=== PATIENT | male | born 1960 | race American Indian/Alaskan Native ===

== ENCOUNTER 2016-07-30 13:53 | Emergency (ER) | payer MEDICAID ==
--- NOTE | 2016-07-30 14:06 | ED PDOC ---
Allergies/Home Meds Allergies/Adverse Reactions: Allergies No Known Allergies Allergy (Verified 07/30/16 14:08) Physical Exam Vital Signs Temp Pulse Resp BP Pulse Ox 07/30/16 15:23 87 16 151/112 H 98 07/30/16 15:22 88 18 151/112 H 98 07/30/16 15:11 81 165/101 H 07/30/16 14:50 81 18 165/101 H 97 07/30/16 14:12 99.8 F H 89 17 155/99 H 97 07/30/16 14:03 99.8 F H 88 18 155/99 H 97 Medical Decision Making - RAD Interpretation Radiology Orders: 07/30/16 14:18 CHEST TWO VIEWS (PA/LAT) [RAD] Stat - Medication Orders Current Medication Orders: Discontinued Medications Amlodipine Besylate (Norvasc) 5 mg PO STAT STA Stop: 07/30/16 15:00 Last Admin: 07/30/16 15:11 Dose: 5 MG MAR Pulse and Blood Pressure Document 07/30/16 15:11 [facility] (Rec: 07/30/16 15:11 [email or web address]) Pulse Pulse Rate (60-90) 81 Blood Pressure Blood Pressure (100/60-150/90) 165/101 Azithromycin (Zithromax) 500 mg PO STAT STA PRN Reason: Protocol Stop: 07/30/16 15:01 Last Admin: 07/30/16 15:10 Dose: 500 MG Benzonatate (Tessalon Perles) 100 mg PO ONCE STA Stop: 07/30/16 15:00 Last Admin: 07/30/16 15:10 Dose: 100 MG Disposition/Present on Arrival - Disposition Diagnosis: Hypertension, Bronchitis Disposition: HOME/ ROUTINE Condition: STABLE Discharge Instructions (ExitCare): Acute Bronchitis (ED), Hypertension (ED) Additional Instructions: Take medication as directed Follow up with a Doctor/Clinic Return to ED for any new or worsening symptoms Prescriptions: amLODIPine [Norvasc] 5 mg PO DAILY #10 tab Benzonatate [Tessalon Perles] 100 mg PO TID #30 sgl Azithromycin [Zithromax] 250 mg PO DAILY #4 tab Referrals: [facility] at [facility] [place] [Outside] - Follow up with primary PCP,NO [Primary Care Provider] - Follow up with primary
[2016-07-30 14:08] VITALS: TEMP 99.8
--- NOTE | 2016-07-30 14:21 | ED PDOC ---
Arrival/HPI - General Chief Complaint: Cough, Cold, Congestion Time Seen by Provider: 07/30/16 14:05 Historian: Patient - History of Present Illness Narrative History of Present Illness (Text): 07/30/16 14:19 [id number] with no PMhx who present with 3days history of nonproductive cough, contrary to the tirage note that states green productive cough. Also reports rhinorrhea, burning throat, chills. Took Mucinex today. Denies fever, sick contact, travel, chest pain, SOB, nausea, vomiting, any other complaint. Past Medical History - Provider Review Nursing Documentation Reviewed: Yes - Infectious Disease Hx of Infectious Diseases: None - Psychiatric Hx Substance Use: No Family/Social History - Physician Review Nursing Documentation Reviewed: Yes Family/Social History: Unknown Family HX Smoking Status: Never Smoked Hx Alcohol Use: No Hx Substance Use: No Allergies/Home Meds Allergies/Adverse Reactions: Allergies No Known Allergies Allergy (Verified 07/30/16 14:08) Review of Systems - Physician Review All systems were reviewed & negative as marked: Yes - Review of Systems Constitutional: Normal Eyes: Normal ENT: Normal Respiratory: Cough. absent: SOB, Sputum, Wheezing Cardiovascular: Normal Gastrointestinal: Normal Genitourinary Male: Normal Musculoskeletal: Normal Skin: Normal Neurological: Normal Endocrine: Normal Hemo/Lymphatic: Normal Psychiatric: Normal Physical Exam Vital Signs Reviewed: Yes Vital Signs Temp Pulse Resp BP Pulse Ox 07/30/16 15:23 87 16 151/112 H 98 07/30/16 15:22 88 18 151/112 H 98 07/30/16 15:11 81 165/101 H 07/30/16 14:50 81 18 165/101 H 97 07/30/16 14:12 99.8 F H 89 17 155/99 H 97 07/30/16 14:03 99.8 F H 88 18 155/99 H 97 Temperature: Febrile Blood Pressure: Hypertensive Pulse: Regular Respiratory Rate: Normal Appearance: Positive for: Well-Appearing, Non-Toxic, Comfortable Pain Distress: None Mental Status: Positive for: Alert and Oriented X 3 - Systems Exam Head: Present: Atraumatic, Normocephalic Pupils: Present: PERRL Extroacular Muscles: Present: EOMI Conjunctiva: Present: Normal Mouth: Present: Moist Mucous Membranes Neck: Present: Normal Range of Motion Respiratory/Chest: Present: Clear to Auscultation, Good Air Exchange. No: Respiratory Distress, Accessory Muscle Use, Wheezes, Decreased Breath Sounds, Rales, Retracting, Rhonchi, Tachypneic Cardiovascular: Present: Regular Rate and Rhythm, Normal S1, S2. No: Murmurs Abdomen: Present: Normal Bowel Sounds. No: Tenderness, Distention, Peritoneal Signs Back: Present: Normal Inspection Upper Extremity: Present: Normal Inspection. No: Cyanosis, Edema Lower Extremity: Present: Normal Inspection. No: Edema Neurological: Present: GCS=15, CN II-XII Intact, Speech Normal Skin: Present: Warm, Dry, Normal Color. No: Rashes Psychiatric: Present: Alert, Oriented x 3, Normal Insight, Normal Concentration Medical Decision Making ED Course and Treatment: 07/30/16 15:01 PT in ED for stated history. He was afebrile and in no distress. He denies any PMHX, but also have not not seen a Doctor for 7years. His BP was elevated while in ED. Is suspect he have had elevated BP for a while but didn't know. He denies headache, aphasia, focal weakness, chest pain, visual changes. He was treated with Amlodipine 5mg in ED. He was strongly advised to f/u with a Doctor for further evaluation. Chest xray was Negative. He had low grade temp. Placed on Zpack and antitussive. TRT ED for any new or worsening symptoms. - RAD Interpretation Radiology Orders: 07/30/16 14:18 CHEST TWO VIEWS (PA/LAT) [RAD] Stat - Medication Orders Current Medication Orders: Discontinued Medications Amlodipine Besylate (Norvasc) 5 mg PO STAT STA Stop: 07/30/16 15:00 Last Admin: 07/30/16 15:11 Dose: 5 MG MAR Pulse and Blood Pressure Document 07/30/16 15:11 [facility] (Rec: 07/30/16 15:11 [facility]) Pulse Pulse Rate (60-90 beats/min) 81 Blood Pressure Blood Pressure (100/60-150/90 mm Hg) 165/101 Azithromycin (Zithromax) 500 mg PO STAT STA PRN Reason: Protocol Stop: 07/30/16 15:01 Last Admin: 07/30/16 15:10 Dose: 500 MG Benzonatate (Tessalon Perles) 100 mg PO ONCE STA Stop: 07/30/16 15:00 Last Admin: 07/30/16 15:10 Dose: 100 MG Disposition/Present on Arrival - Present on Arrival Any Indicators Present on Arrival: No History of DVT/PE: No History of Uncontrolled Diabetes: No Urinary Catheter: No History of Decub. Ulcer: No History Surgical Site Infection Following: None - Disposition Have Diagnosis and Disposition been Completed?: Yes Diagnosis: Hypertension, Bronchitis Disposition: HOME/ ROUTINE Disposition Time: 16:05 Patient Plan: Discharge Patient Problems: Current Active Problems Problem Status Diagnosed Bronchitis Acute Hypertension Acute Condition: STABLE Discharge Instructions (ExitCare): Acute Bronchitis (ED), Hypertension (ED) Additional Instructions: Take medication as directed Follow up with a Doctor/Clinic Return to ED for any new or worsening symptoms Prescriptions: amLODIPine [Norvasc] 5 mg PO DAILY #10 tab Benzonatate [Tessalon Perles] 100 mg PO TID #30 sgl Azithromycin [Zithromax] 250 mg PO DAILY #4 tab Referrals: PCP,NO [Primary Care Provider] - Follow up with primary [facility] [place] [facility] [place]] - Follow up with primary
--- NOTE | 2016-07-30 14:54 | RAD ---
HISTORY: cough COMPARISON: No prior. TECHNIQUE: Chest PA and lateral FINDINGS: LUNGS: No active pulmonary disease. PLEURA: No significant pleural effusion identified. No pneumothorax apparent. CARDIOVASCULAR: Normal. OSSEOUS STRUCTURES: No significant abnormalities. VISUALIZED UPPER ABDOMEN: Normal. OTHER FINDINGS: None. IMPRESSION: No active disease.
[2016-07-30 15:23] VITALS: BP 151/112; O2SAT 98
[2016-07-30 15:24] VITALS: PULSE 87; RESP 16
== END 2016-07-30 16:03 | disposition home or self-care (01) ==
LOC: ED 13:53
DX: I10 Essential (primary) hypertension (principal); J40 Bronchitis, not specified as acute or chronic

== ENCOUNTER 2017-05-20 08:52 | Emergency (ER) | payer MEDICAID, OTHER ==
[2017-05-20 09:09] VITALS: BP 123/70; PULSE 106; RESP 18; TEMP 98.7; O2SAT 98
[2017-05-20] MEDS ORDERED: Albuterol-Ipratrop 3 mg / 0.5 (3 ml) UD IH STA (09:16)
--- NOTE | 2017-05-20 09:19 | ED PDOC ---
Arrival/HPI - History of Present Illness Context: Home <Jeremy Washington - Last Filed: 05/20/17 10:30> - General Historian: Patient - History of Present Illness Symptom Onset: Sudden Symptom Course: Unchanged Activities at Onset: Rest <Mercedez Veliz - Last Filed: 05/20/17 11:16> - General Chief Complaint: Flu-like Symptoms Time Seen by Provider: 05/20/17 09:04 - History of Present Illness Narrative History of Present Illness (Text): CC: cough x 1 night 05/20/17 09:19 56M with no past medical history presents with a cough starting over night ( night time). Patient states he felt itchy feeling in his throat which gets better with water, felt a subjective fever, chills. Patient felt like something was stuck in his throat. Patient admits to on left and right side of chest with and without cough. Patient states he's not on any medication. 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 denies: abdominal pain, nausea, vomiting, diarrhea, constipation, dizziness (Mercedez Veliz) Past Medical History - Provider Review Nursing Documentation Reviewed: Yes - Travel History Have you recently traveled outside [place] w/in the past 3 mons?: No - Infectious Disease Hx of Infectious Diseases: None - Psychiatric Hx Substance Use: No <Mercedez Veliz - Last Filed: 05/20/17 11:16> Family/Social History - Physician Review Nursing Documentation Reviewed: Yes Family/Social History: Unknown Family HX Smoking Status: Never Smoked Hx Alcohol Use: Yes Frequency of alcohol use: Socially ("every other day") Hx Substance Use: No <Mercedez Veliz - Last Filed: 05/20/17 11:16> Allergies/Home Meds <Jeremy Washington - Last Filed: 05/20/17 10:30> <Mercedez Veliz - Last Filed: 05/20/17 11:16> Allergies/Adverse Reactions: Allergies No Known Allergies Allergy (Verified 05/20/17 09:09) Review of Systems - Physician Review All systems were reviewed & negative as marked: Yes - Review of Systems Constitutional: Normal. absent: Fatigue, Weight Change, Fevers Eyes: Normal. absent: Vision Changes, Photophobia, Eye Pain ENT: Sore Throat. absent: Hearing Changes, Tinnitus, TMJ Pain, Rhinorrhea, Epistaxis, Sinus Congestion Respiratory: Cough. absent: SOB, Sputum, Wheezing Cardiovascular: absent: Chest Pain, Palpitations, Edema Gastrointestinal: absent: Abdominal Pain, Stool Changes, Constipation, Diarrhea , Nausea, Vomiting, Appetite Changes, Hematochezia, Hematemesis Genitourinary Male: absent: Dysuria, Frequency, Hematuria Musculoskeletal: absent: Arthralgias, Back Pain, Neck Pain, Joint Swelling Skin: absent: Rash, Pruritis, Skin Lesions, Laceration Neurological: Headache. absent: Dizziness, Focal Weakness, Gait Changes, Speech Changes, Facial Droop, Disequilibrium Endocrine: absent: Diaphoresis, Polyuria, Polydipsia Psychiatric: absent: Anxiety, Depression, Suicidal Ideation <EngMercedez - Last Filed: 05/20/17 11:16> Physical Exam Temperature: Afebrile <TolericoCollinsJeremy - Last Filed: 05/20/17 10:30> Vital Signs Reviewed: Yes Blood Pressure: Normal Pulse: Tachycardic Respiratory Rate: Normal Appearance: Positive for: Comfortable Mental Status: Positive for: Alert and Oriented X 3 - Systems Exam Head: Present: Atraumatic, Normocephalic. No: Tenderness, Contusion, Swelling Pupils: Present: PERRL. No: Sluggish, Non-Reactive, Pinpoint Extroacular Muscles: Present: EOMI. No: Gaze Palsy, Entrapment Conjunctiva: Present: Icteric. No: Injected Ears: Present: Other Pharnyx: Present: ERYTHEMA (right ear impacted. left ear normal in appearance, normal TM, no erythema, normal canal, no bulging TM, no perforation of TM on left side) Nose (External): Present: Atraumatic. No: Abrasion, Contusion, Laceration Neck: Present: Normal Range of Motion, Trachea Midline. No: MIDLINE TENDERNESS , JVD, Lymphadenopathy Respiratory/Chest: Present: Clear to Auscultation, Good Air Exchange, Tender to Palpation (on right and left pectoralis muscles.). No: Respiratory Distress, Rhonchi, Tachypneic Cardiovascular: Present: Regular Rate and Rhythm, Normal S1, S2. No: Murmurs Abdomen: Present: Normal Bowel Sounds. No: Tenderness, Distention, Peritoneal Signs Upper Extremity: Present: Normal Inspection, Normal ROM, NORMAL PULSES, Capillary Refill < 2s. No: Cyanosis, Edema Lower Extremity: Present: Normal Inspection, NORMAL PULSES, Normal ROM, Capillary Refill < 2 s. No: Edema, CALF TENDERNESS Neurological: Present: GCS=15, CN II-XII Intact, Speech Normal Skin: Present: Warm, Normal Color. No: Dry, Rashes Psychiatric: Present: Alert, Oriented x 3, Normal Insight, Normal Concentration , Normal Mood. No: Anxious, Agitated <Mercedez Veliz - Last Filed: 05/20/17 11:16> Vital Signs Temp Pulse Resp BP Pulse Ox 05/20/17 09:08 98.7 F 106 H 18 123/70 98 Medical Decision Making <Jeremy Washington - Last Filed: 05/20/17 10:30> - EKG Interpretation Interpreted by ED Physician: Yes Type: 12 lead EKG <Mercedez Veliz - Last Filed: 05/20/17 11:16> ED Course and Treatment: Patient Seen With Resident: In agreement with resident note which contains more details about the patient. Patient was seen and evaluated with resident. Came up with plan and treatment together. 56 year old male presents complaining of cough, itchy throat, subjective fever, and chills that began last night. Plan: -- Duoneb -- Solu-Medrol 05/20/17 10:30 Seen and examined with the resident. Our history and physical exam reveals a gentleman complaining of a cough congestion and URI since yesterday. Does not appear ill or toxic. (Jeremy Washington) 05/20/17 09:27 solumedrol duoneb 05/20/17 09:27 EKG sinus tachycardia @102bpm CXR (Mercedez Veliz) - RAD Interpretation Radiology Orders: 05/20/17 10:08 CXR [CHEST PORTABLE] [RAD] Stat - EKG Interpretation EKG Interpretation (Text): 05/20/17 10:27 sinus tachycardia @102 bpm (Jose Alfredo,Mercedez) - Medication Orders Current Medication Orders: Discontinued Medications Albuterol/Ipratropium (Duoneb 3 Mg/0.5 Mg (3 Ml) Ud) 3 ml IH STAT STA Stop: 05/20/17 09:17 Last Admin: 05/20/17 09:29 Dose: 3 ml Methylprednisolone (Solu-Medrol) 125 mg IVP STAT STA Stop: 05/20/17 09:17 Last Admin: 05/20/17 09:29 Dose: 125 mg IVP Administration Document 05/20/17 09:29 SE (Rec: 05/20/17 09:29 SE [id number]) Charges for Administration # of IVP Administrations 1 - Scribe Statement The provider has reviewed the documentation as recorded by the Scribe <Jeremy Washington - Last Filed: 05/20/17 10:30> <Mercedez Veliz - Last Filed: 05/20/17 11:16> - Scribe Statement Madhuri Plummer Provider Scribe Attestation: All medical record entries made by the Scribe were at my direction and personally dictated by me. I have reviewed the chart and agree that the record accurately reflects my personal performance of the history, physical exam, medical decision making, and the department course for this patient. I have also personally directed, reviewed, and agree with the discharge instructions and disposition. (Jeremy Washington) Disposition/Present on Arrival <Jeremy Washington - Last Filed: 05/20/17 10:30> - Present on Arrival Any Indicators Present on Arrival: No History of DVT/PE: No History of Uncontrolled Diabetes: No Urinary Catheter: No History of Decub. Ulcer: No History Surgical Site Infection Following: None - Disposition Have Diagnosis and Disposition been Completed?: Yes Disposition Time: 10:44 <Mercedez Veliz - Last Filed: 05/20/17 11:16> - Disposition Diagnosis: Viral URI with cough Condition: IMPROVED Additional Instructions: continue rest, hydration Patient to follow up at clinic to establish care return to ED if symptoms worsen (headache, cough, vomiting, diarrhea) Prescriptions: Albuterol HFA [Ventolin HFA 90 mcg/actuation (8 g)] 2 puff IH [id number] PRN #1 inhaler PRN Reason: Shortness Of Breath Referrals: PCP,NO [Primary Care Provider] - Follow up with primary [facility] [Outside] - Follow up with primary Forms: [employer] (Upper Sorbian)
--- NOTE | 2017-05-20 10:49 | RAD ---
HISTORY: cough, etoh history COMPARISON: 07/30/2016 FINDINGS: LUNGS: No active pulmonary disease. PLEURA: No significant pleural effusion identified, no pneumothorax apparent. CARDIOVASCULAR: Normal. OSSEOUS STRUCTURES: No significant abnormalities. VISUALIZED UPPER ABDOMEN: Normal. OTHER FINDINGS: None. IMPRESSION: No active disease.
--- NOTE | 2017-05-20 12:15 | CARD ---
APPROVED REPORT EKG Measurement Heart [id number] <Conclusion> Sinus tachycardia Possible Left atrial enlargement Left ventricular hypertrophy Inferior infarct, age undetermined Anterior infarct, age undetermined Abnormal ECG
== END 2017-05-20 11:30 | disposition home or self-care (01) ==
LOC: ED 08:52
DX: J06.9 Acute upper respiratory infection, unspecified (principal); R05 Cough
CPT/HCPCS: 71045; 93005; 96374; 99284; J2930

== ENCOUNTER 2017-05-29 14:54 | Emergency (ER) | payer MEDICAID, OTHER ==
[2017-05-29 15:04] VITALS: BMI 34.0
--- NOTE | 2017-05-29 15:10 | ED PDOC ---
Arrival/HPI - General Time Seen by Provider: 05/29/17 14:59 Historian: Patient - History of Present Illness Narrative History of Present Illness (Text): 05/29/17 15:03 A 56 year old male, with no significant past medical history presents to emergency department complaining of flu like symptoms for the past few days. Patient reports a a fever, chills, sore throat, cough and posttussive chest discomfort. On evaluation patient was found to have a temperature of 101.4. Patient denies any nausea, vomiting, abdominal pain, shortness of breath or any other complaints. Patient reports he did not receive the flu shot. PMD: None Time/Duration: Other (past few days) Symptom Course: Unchanged Context: Home Past Medical History - Provider Review Nursing Documentation Reviewed: Yes - Infectious Disease Hx of Infectious Diseases: None - Psychiatric Hx Substance Use: No Family/Social History - Physician Review Nursing Documentation Reviewed: Yes Family/Social History: No Known Family HX Smoking Status: Never Smoked Hx Alcohol Use: Yes Hx Substance Use: No Allergies/Home Meds Allergies/Adverse Reactions: Allergies No Known Allergies Allergy (Verified 05/20/17 09:09) Review of Systems - Physician Review All systems were reviewed & negative as marked: Yes - Review of Systems Constitutional: Fevers, Night Sweats ENT: Sore Throat Respiratory: Cough. absent: SOB Cardiovascular: Other (posttussive chest discomfort) Gastrointestinal: absent: Abdominal Pain, Nausea, Vomiting Physical Exam Vital Signs Reviewed: Yes Vital Signs Temp Pulse Resp BP Pulse Ox 05/29/17 17:42 101.4 F H 94 H 18 143/75 96 05/29/17 15:09 101.4 F H 100 H 17 145/89 96 Temperature: Febrile Blood Pressure: Normal Pulse: Tachycardic Respiratory Rate: Normal Appearance: Positive for: Well-Appearing, Non-Toxic, Comfortable Pain Distress: None Mental Status: Positive for: Alert and Oriented X 3 - Systems Exam Head: Present: Atraumatic, Normocephalic Pupils: Present: PERRL Extroacular Muscles: Present: EOMI Conjunctiva: Present: Normal Mouth: Present: Moist Mucous Membranes Neck: Present: Normal Range of Motion Respiratory/Chest: Present: Clear to Auscultation, Good Air Exchange. No: Respiratory Distress, Accessory Muscle Use Cardiovascular: Present: Regular Rate and Rhythm, Normal S1, S2. No: Murmurs Abdomen: Present: Normal Bowel Sounds. No: Tenderness, Distention, Peritoneal Signs Back: Present: Normal Inspection Upper Extremity: Present: Normal Inspection. No: Cyanosis, Edema Lower Extremity: Present: Normal Inspection. No: Edema Neurological: Present: GCS=15, CN II-XII Intact, Speech Normal Skin: Present: Warm (warm to touch), Dry, Normal Color. No: Rashes Psychiatric: Present: Alert, Oriented x 3, Normal Insight, Normal Concentration Medical Decision Making ED Course and Treatment: 05/29/17 15:13 Impression: A 56 year old with fever, chills, sore throat, cough and posttussive chest discomfort, Differential Diagnosis included but are not limited to: Influenza vs. Viral symptoms vs. Pneumonia Plan: -- Chest xray -- EKG -- Influenza A B Stat -- Tylenol and Motrin -- Reassess and disposition Progress Notes: EKG shows NSR at 97 BPM with normal rate, normal axis. Interpreted by me. Report Date : 05/29/2017 16:33:09 Procedure: Chest xray Dictator : Stephen Baker MD IMPRESSION: No interval acute cardiopulmonary disease appreciated. - Lab Interpretations Lab Results: Lab Results 05/29/17 16:45: Influenza Typ A,B (EIA) Negative for flu a/b - RAD Interpretation Radiology Orders: 05/29/17 15:18 CXR [CHEST TWO VIEWS (PA/LAT)] [RAD] Stat - Medication Orders Current Medication Orders: Discontinued Medications Acetaminophen (Tylenol 325mg Tab) 975 mg PO STAT STA Stop: 05/29/17 15:05 Last Admin: 05/29/17 15:10 Dose: 975 mg Guaifenesin/Dextromethorphan (Robitussin Dm) 10 ml PO Q4H PRN PRN Reason: Cough Last Admin: 05/29/17 17:54 Dose: 10 ml Ibuprofen (Motrin Tab) 800 mg PO STAT STA Stop: 05/29/17 15:05 Last Admin: 05/29/17 15:10 Dose: 800 mg Levofloxacin (Levaquin) 750 mg PO STAT STA Stop: 05/29/17 17:15 Last Admin: 05/29/17 17:52 Dose: 750 mg - PA / MAINTENANCE CHIEF / Resident Statement MD/DO has reviewed & agrees with the documentation as recorded. - Scribe Statement The provider has reviewed the documentation as recorded by the Scribe Jeanette Membreno training under Trupti Saeed Provider Scribe Attestation: All medical record entries made by the Scribe were at my direction and personally dictated by me. I have reviewed the chart and agree that the record accurately reflects my personal performance of the history, physical exam, medical decision making, and the department course for this patient. I have also personally directed, reviewed, and agree with the discharge instructions and disposition. Disposition/Present on Arrival - Present on Arrival Any Indicators Present on Arrival: No History of DVT/PE: No History of Uncontrolled Diabetes: No Urinary Catheter: No History Surgical Site Infection Following: None - Disposition Have Diagnosis and Disposition been Completed?: Yes Diagnosis: Acute bronchitis Disposition: HOME/ ROUTINE Disposition Time: 17:19 Patient Plan: Discharge Condition: GOOD Discharge Instructions (ExitCare): Acute Bronchitis, Adult (DC), Acute Bronchitis Additional Instructions: Mr Castillo - Sorry that you are sick. Your Influenza test was negative and your CXR did not show pneumonia. I am treating you with Levaquin (an antibiotic) for acute bronchitis. Take tylenol for fever and motrin for body aches and chest pain with cough. Use the robatussin cough syrup four times a day as needed. Follow up with your doctor next week and return to us if worse or new symptoms develop. Mikal- Dr. Carlos Enrique Staley Prescriptions: Guaifenesin/Dextromethorphan [Robafen Dm Cgh-Chest Brock Liq] 10 ml PO QID #200 liquid levoFLOXacin [Levaquin] 750 mg PO STAT #10 tab Referrals: PCP,NO [Primary Care Provider] - Follow up with primary Forms: [employer] (Lithuanian)
[2017-05-29 15:14] VITALS: TEMP 101.4; O2SAT 96
--- NOTE | 2017-05-29 16:34 | RAD ---
HISTORY: Cough/Fever COMPARISON: Portable chest 05/20/2017. TECHNIQUE: Chest PA and lateral FINDINGS: LUNGS: No active pulmonary disease. PLEURA: No significant pleural effusion identified. No pneumothorax apparent. CARDIOVASCULAR: Normal. OSSEOUS STRUCTURES: No significant abnormalities. VISUALIZED UPPER ABDOMEN: Normal. OTHER FINDINGS: None. IMPRESSION: No interval acute cardiopulmonary disease appreciated.
[2017-05-29] MEDS ORDERED: guaiFENesin DM 200 mg-20 mg/10 ml UD PO PRN (17:14)
[2017-05-29] MEDS ORDERED: levoFLOXacin 750 MG TAB PO STA (17:14)
[2017-05-29 17:44] VITALS: BP 143/75; PULSE 94; RESP 18
--- NOTE | 2017-05-30 10:02 | CARD ---
APPROVED REPORT EKG Measurement Heart [id number] <Conclusion> Normal sinus rhythm Possible Left atrial enlargement Left ventricular hypertrophy STTW changes c/w ischemia No change
== END 2017-05-29 18:03 | disposition home or self-care (01) ==
LOC: ED 14:54
DX: J20.9 Acute bronchitis, unspecified (principal)

== ENCOUNTER 2017-09-04 11:17 | Emergency (ER) | payer MEDICAID ==
[2017-09-04 11:38] VITALS: O2SAT 96
[2017-09-04 11:41] VITALS: BMI 29.2
--- NOTE | 2017-09-04 12:00 | ED PDOC ---
Arrival/HPI - General Time Seen by Provider: 09/04/17 11:48 Historian: Patient - History of Present Illness Narrative History of Present Illness (Text): 09/04/17 11:57 56yo male with no significant PMHx who present with 2days history of fever, sore throat, generalized bodyache. +Odynophagia. Denies dysphagia, cough, ear pain, nausea, vomiting, abdominal pain, neck pain, any other complaint. He notes that he took Tylenol 2days ago. Past Medical History - Provider Review Nursing Documentation Reviewed: Yes - Infectious Disease Hx of Infectious Diseases: None - Psychiatric Hx Substance Use: No - Anesthesia Hx Anesthesia: No Family/Social History - Physician Review Nursing Documentation Reviewed: Yes Family/Social History: Unknown Family HX Smoking Status: Never Smoked Hx Alcohol Use: Yes Hx Substance Use: No Allergies/Home Meds Allergies/Adverse Reactions: Allergies No Known Allergies Allergy (Verified 09/04/17 12:07) Review of Systems - Physician Review All systems were reviewed & negative as marked: Yes - Review of Systems Constitutional: Fatigue, Fevers Eyes: Normal ENT: Sore Throat Respiratory: Normal Cardiovascular: Normal Gastrointestinal: Normal Genitourinary Male: Normal Musculoskeletal: Normal Skin: Normal Neurological: Normal Endocrine: Normal Hemo/Lymphatic: Normal Psychiatric: Normal Physical Exam Vital Signs Reviewed: Yes Vital Signs Temp Pulse Resp BP Pulse Ox 09/04/17 14:44 98.5 F 90 18 161/105 H 96 09/04/17 14:34 98.5 F 90 20 161/105 H 96 09/04/17 13:10 102.2 F H 120 H 20 166/100 H 97 09/04/17 11:37 101.4 F H 105 H 20 148/100 H 96 Temperature: Febrile Blood Pressure: Hypertensive Pulse: Tachycardic Respiratory Rate: Normal Appearance: Positive for: Well-Appearing, Non-Toxic, Comfortable Pain Distress: None Mental Status: Positive for: Alert and Oriented X 3 - Systems Exam Head: Present: Atraumatic, Normocephalic Pupils: Present: PERRL Extroacular Muscles: Present: EOMI Conjunctiva: Present: Normal Mouth: Present: Moist Mucous Membranes Pharnyx: Present: ERYTHEMA, EXUDATE, TONSILS ENLARGED, Peritonsilar Swelling. No: Uvular Deviation, Muffled/Hoarse Voice, Strider, Soft Palate/Uvular Edema Neck: Present: Normal Range of Motion Respiratory/Chest: Present: Clear to Auscultation, Good Air Exchange. No: Respiratory Distress, Accessory Muscle Use Cardiovascular: Present: Regular Rate and Rhythm, Normal S1, S2. No: Murmurs Abdomen: No: Tenderness, Distention, Peritoneal Signs Back: Present: Normal Inspection Upper Extremity: Present: Normal Inspection. No: Cyanosis, Edema Lower Extremity: Present: Normal Inspection. No: Edema Neurological: Present: GCS=15, CN II-XII Intact, Speech Normal Skin: Present: Warm, Dry, Normal Color. No: Rashes Psychiatric: Present: Alert, Oriented x 3, Normal Insight, Normal Concentration Medical Decision Making ED Course and Treatment: 09/04/17 18:25 PT present to ED for stated history. His VS improved in ED with medication. He was controlling his secretion. No drooling. No trismus. No meningeal signs. He states his pain improved in ED with medication. He was DC home with PNC. Referred to his PMD. - Medication Orders Current Medication Orders: Discontinued Medications Acetaminophen (Tylenol 325mg Tab) 650 mg PO STAT STA Stop: 09/04/17 12:45 Last Admin: 09/04/17 13:13 Dose: 650 mg MAR Pain/Vitals Document 09/04/17 13:13 [facility] (Rec: 09/04/17 13:13 [id number] Pain Reassessment Is This A Pain ReAssessment? No Dexamethasone (Decadron Inj) 10 mg IM STAT STA Stop: 09/04/17 11:57 Last Admin: 09/04/17 12:12 Dose: 10 mg IM Administration Charges Document 09/04/17 12:12 [facility] (Rec: 09/04/17 12:12 [id number][facility] Injection Site MAR Injection Site Right Deltoid Charges for Administration # of IM Administrations 1 Ibuprofen (Motrin Tab) 600 mg PO STAT STA Stop: 09/04/17 11:57 Last Admin: 09/04/17 12:11 Dose: 600 mg MAR Pain/Vitals Document 09/04/17 12:11 [facility] (Rec: 09/04/17 12:12 [id number][facility] Pain Reassessment Is This A Pain ReAssessment? No Re-Assess: MAR Pain/Vitals Document 09/04/17 13:11 [facility] (Rec: 09/04/17 13:13 [facility] [id number]) Pain Reassessment Is This A Pain ReAssessment? Yes Sleep Is patient sleeping during reassessment? No Penicillin V Potassium (Penicillin Vk Tab) 500 mg PO STAT STA PRN Reason: Protocol Stop: 09/04/17 11:57 Last Admin: 09/04/17 12:12 Dose: 500 mg Disposition/Present on Arrival - Present on Arrival Any Indicators Present on Arrival: No History of DVT/PE: No History of Uncontrolled Diabetes: No Urinary Catheter: No History Surgical Site Infection Following: None - Disposition Have Diagnosis and Disposition been Completed?: Yes Diagnosis: Acute tonsillitis Disposition: HOME/ ROUTINE Disposition Time: 12:05 Patient Plan: Discharge Condition: STABLE Discharge Instructions (ExitCare): Sore Throat, Adult (DC) Additional Instructions: Follow up with your Doctor Return to ED for any new or worsening symptoms Prescriptions: Penicillin VK [Penicillin VK Tab] 500 mg PO BID #14 tab Referrals: [facility] at [facility] [place] [Outside] - Follow up with primary Forms: WORK NOTE
[2017-09-04 14:36] VITALS: BP 161/105; PULSE 90; TEMP 98.5
[2017-09-04 14:47] VITALS: RESP 18
== END 2017-09-04 14:47 | disposition home or self-care (01) ==
LOC: ED 11:17
DX: J03.90 Acute tonsillitis, unspecified (principal)
CPT/HCPCS: 96372; 99284; J1100

== ENCOUNTER 2018-03-27 12:07 | Emergency (ER) | payer MEDICAID ==
[2018-03-27 12:07] VITALS: BMI 29.2
[2018-03-27 12:25] VITALS: TEMP 98.4; O2SAT 99
[2018-03-27] MEDS ORDERED: Naproxen 550 mg Tab PO STA (12:29)
--- NOTE | 2018-03-27 12:32 | ED PDOC ---
Arrival/HPI - General Chief Complaint: Upper Extremity Problem/Injury Time Seen by Provider: 03/27/18 12:14 - History of Present Illness Narrative History of Present Illness (Text): 03/27/18 12:30 A 57 year old male with no significant past medical history presents to the emergency department complaining of a right hand injury from earlier today. Patient reports his injured his hand after trying to push a parked car and notes pain to his 4th digit. Patient denies any fever, chills, shortness of breath, chest pain, diarrhea, nausea, vomiting, urinary symptoms, back pain, neck pain, headache, dizziness, or any other complaints. Time/Duration: 4-6 hours (earlier today) Symptom Onset: Sudden Activities at Onset: Significant Context: Street (pushing a parked car) Past Medical History - Provider Review Nursing Documentation Reviewed: Yes - Infectious Disease Hx of Infectious Diseases: None - Psychiatric Hx Substance Use: No - Anesthesia Hx Anesthesia: No Hx Anesthesia Reactions: No Hx Malignant Hyperthermia: No Family/Social History - Physician Review Nursing Documentation Reviewed: Yes Family/Social History: No Known Family HX Smoking Status: Never Smoked Hx Alcohol Use: Yes Hx Substance Use: No Allergies/Home Meds Allergies/Adverse Reactions: Allergies No Known Allergies Allergy (Verified 03/27/18 12:25) Review of Systems - Physician Review All systems were reviewed & negative as marked: Yes - Review of Systems Constitutional: absent: Fevers, Night Sweats Respiratory: absent: SOB Cardiovascular: absent: Chest Pain Gastrointestinal: absent: Diarrhea, Nausea, Vomiting Genitourinary Male: absent: Urinary Output Changes Musculoskeletal: Other (right hand pain). absent: Back Pain, Neck Pain Neurological: absent: Headache, Dizziness Physical Exam Vital Signs Reviewed: Yes Vital Signs Temp Pulse Resp BP Pulse Ox 03/27/18 12:20 98.4 F 85 19 167/99 H 99 Temperature: Afebrile Blood Pressure: Hypertensive Pulse: Regular Respiratory Rate: Normal Appearance: Positive for: Well-Appearing, Non-Toxic, Comfortable Pain Distress: None Mental Status: Positive for: Alert and Oriented X 3 - Systems Exam Head: Present: Atraumatic, Normocephalic Pupils: Present: PERRL Extroacular Muscles: Present: EOMI Conjunctiva: Present: Normal Respiratory/Chest: Present: Clear to Auscultation, Good Air Exchange. No: Respiratory Distress, Accessory Muscle Use Cardiovascular: Present: Regular Rate and Rhythm, Normal S1, S2. No: Murmurs Abdomen: No: Tenderness, Distention, Peritoneal Signs Back: Present: Normal Inspection Upper Extremity: Present: Swelling (+4th digit mild swelling), Other (+4th digit tenderness) Lower Extremity: Present: Normal Inspection. No: Edema Neurological: Present: GCS=15, CN II-XII Intact, Speech Normal Skin: Present: Warm, Dry, Normal Color. No: Rashes Psychiatric: Present: Alert, Oriented x 3, Normal Insight, Normal Concentration Medical Decision Making ED Course and Treatment: 03/27/18 12:35 Impression: 57 year old male presenting to the emergency department with a right hand injury. Plan: -- Anaprox DS -- Xray of right hand -- Reassess and disposition Prior Visits: Notes and results from previous visits were reviewed. Progress Notes: 03/27/18 17:16 xr neg. stable for outpt managment. - RAD Interpretation Radiology Orders: 03/27/18 12:29 HAND RIGHT 3 VIEWS [RAD] Stat - Medication Orders Current Medication Orders: Naproxen (Anaprox Ds) 550 mg PO STAT STA Stop: 03/27/18 12:30 - Scribe Statement The provider has reviewed the documentation as recorded by the Scribe Sofie Styles All medical record entries made by the Scribe were at my direction and personally dictated by me. I have reviewed the chart and agree that the record accurately reflects my personal performance of the history, physical exam, medical decision making, and the department course for this patient. I have also personally directed, reviewed, and agree with the discharge instructions and disposition. Disposition/Present on Arrival - Present on Arrival Any Indicators Present on Arrival: No History of DVT/PE: No History of Uncontrolled Diabetes: No Urinary Catheter: No History of Decub. Ulcer: No History Surgical Site Infection Following: None - Disposition Have Diagnosis and Disposition been Completed?: Yes Diagnosis: Hand pain Disposition: HOME/ ROUTINE Disposition Time: 14:00 Condition: STABLE Discharge Instructions (ExitCare): Hand Pain (DC) Additional Instructions: return to er with worsening symptoms or concerns. follow up with specialist. Prescriptions: RX: Naproxen 500 mg PO BID PRN #14 PRN Reason: Pain, Mild (1-3) Referrals: [facility] [Outside] - Follow up with primary [facility] at [facility] [place] [Outside] - Follow up with primary Connor De La Rosa DO [Staff Provider] - Follow up with primary PCP,NO [Primary Care Provider] - Follow up with primary Forms: [employer] (Indonesian)
[2018-03-27 14:13] VITALS: BP 151/76; PULSE 76; RESP 18
--- NOTE | 2018-03-27 16:41 | RAD ---
PROCEDURE: Right Hand Radiographs. HISTORY: trauma COMPARISON: None. FINDINGS: BONES: Normal. No fracture. JOINTS: Osteoarthritic changes are mild. SOFT TISSUES: Lateral soft tissue swelling. Adjacent osseous structures within normal limits. OTHER FINDINGS: None. IMPRESSION: Soft tissue swelling without acute articular or osseous abnormality. Concordant results with the preliminary interpretation rendered by the emergency department physician procedure.
== END 2018-03-27 14:12 | disposition home or self-care (01) ==
LOC: ED 12:07
DX: M79.641 Pain in right hand (principal)